=== PATIENT | male | born 2000 | race Two or more races ===

== ENCOUNTER 2019-03-13 15:34 | Emergency (ER) | payer OTHER ==
[~2019-03-13] VITALS: Ht 177.8 cm; Wt 71.0 kg
[2019-03-13] MEDS ORDERED: SODIUM CHLORIDE FLUSH 10ML SYR IVF ONE (16:00)
[2019-03-13] MEDS ORDERED: LIDOCAINE 1%, 10ML INFIL ONE (16:00)
[2019-03-13] MEDS ORDERED: MORPHINE SULFATE 4 MG/ML, 1ML IVPush PRN (16:00)
[2019-03-13] MEDS ORDERED: ONDANSETRON 2MG/ML, 2ML IVPush ONE (16:00)
[2019-03-13] MEDS ORDERED: MORPHINE SULFATE 4 MG/ML, 1ML ONE (16:03)
[2019-03-13] MEDS ORDERED: ONDANSETRON 2MG/ML, 2ML ONE (16:03)
[2019-03-13] MEDS ORDERED: LIDOCAINE-MPF 1%, 5ML ONE (16:03)
[2019-03-13 16:11] LABS: BASOPHILS # (AUTO) 0.06 x10^3/uL (0-0.3); BASOPHILS % (AUTO) 1 % (0-1); EOSINOPHILS # (AUTO) 0.28 x10^3/uL (0-0.8); EOSINOPHILS % (AUTO) 4 % (1-7); LYMPHOCYTES # (AUTO) 1.35 x10^3/uL (1-6.1); LYMPHOCYTES % (AUTO) 19 % (22-44); MD NO; MEAN CORPUSCULAR HEMOGLOBIN 31.9 pg (27.5-34.5); MEAN CORPUSCULAR VOLUME 93.8 fL (81-97); MEAN PLATELET VOLUME 7.8 fL (7.4-10.4); MONOCYTES # (AUTO) 0.58 x10^3/uL (0-1.4); MONOCYTES % (AUTO) 8 % (2-9); NEUTROPHILS # (AUTO) 4.83 x10^3/uL (1.8-8.0); NEUTROPHILS % (AUTO) 68 % (42-75); PLATELET COUNT 266 x10^3/uL (130-400); RED BLOOD COUNT 5.55 x10^6/uL (4.38-5.82)
[2019-03-13 16:18] LABS: ALANINE AMINOTRANSFERASE 22 U/L (12-78); ALBUMIN 4.2 g/dL (3.4-5.0); ANION GAP 7 mmol/L (5-15); CALCIUM 8.9 mg/dL (8.5-10.1); CHLORIDE 108 mmol/L (98-107)
[2019-03-13 16:20] LABS: ALKALINE PHOSPHATASE 67 U/L (45-117); BILIRUBIN,TOTAL 1.3 mg/dL (0.2-1.0); TOTAL PROTEIN 7.3 g/dL (6.4-8.2)
[2019-03-13] MEDS ORDERED: BUPIVACAINE 0.25% ONE (16:59)
[2019-03-13] MEDS ORDERED: NEOSPORIN OINT. PKT 1 PACKET ONE (17:37)
[2019-03-13] MEDS ORDERED: GADOTERATE 7.5 MMOL/15 ML SYR ONE (17:47)
[2019-03-13 19:23] VITALS: BP 129/82
== END 2019-03-13 19:27 | disposition home or self-care (01) ==
LOC: ED 19:15
DX: S01.511A Laceration without foreign body of lip, initial encounter (principal); R55 Syncope and collapse; W18.30XA Fall on same level, unspecified, initial encounter; Y93.89 Activity, other specified; Y92.89 Other specified places as the place of occurrence of the external cause; Y99.8 Other external cause status
CPT/HCPCS: 12051; 36415; 70450; 70486; 70553; 80053; 85025; 93005; 96374; 96375; 99285; A9575; J2270; J2405; J3490

== ENCOUNTER 2020-12-27 20:48 | Emergency (ER) | payer OTHER ==
[~2020-12-27] VITALS: Ht 177.8 cm; Wt 75.0 kg
--- NOTE | 2020-12-27 20:49 | NUR ---
INITIAL PT CONTACT. PT PRESENTS TO ED C/O BILAT SHOULDER DISLOCATIONS, "I WAS LOWERING MYSELF ONTO MY BED AND THEY BOTH POPPED OUT." CSM INTACT DISTAL TO INJURIES. UPON POSITIONING PT IN ROOM, RIGHT ARM RELOCATED PER PT. NO PRIOR HX OF DISLOCATIONS. PT PLACED ON CONTINUOUS MONITORING. CALL LIGHT AND PERSONAL BELONGINGS WITHIN REACH. CALL LIGHT IN REACH, FRIEND AT BEDSIDE.
--- NOTE | 2020-12-27 21:16 | NUR ---
PT RETURNED FROM XRAY
--- NOTE | 2020-12-27 21:17 | NUR ---
XRAY UNABLE TO PERFORM EXAM DUE TO PT PAIN. ERP AWARE. 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
[2020-12-27] MEDS ORDERED: ONDANSETRON 2MG/ML, 2ML ONE (21:22)
[2020-12-27] MEDS ORDERED: MORPHINE SULFATE 4 MG/ML, 1ML ONE ×2 (21:23→21:41)
[2020-12-27] MEDS: MORPHINE SULFATE 4 MG/ML, 1ML IVPush PRN ×2 (21:24→21:42)
[2020-12-27] MEDS ORDERED: ONDANSETRON 2MG/ML, 2ML IVPush ONE (21:30)
[2020-12-27] MEDS ORDERED: KETOROLAC 15 MG/1ML IVPush ONE (23:00)
[2020-12-27] MEDS ORDERED: KETOROLAC 30 MG/1 ML ONE (23:06)
--- NOTE | 2020-12-27 23:15 | NUR ---
PT TO CT
[2020-12-28 00:26] VITALS: BP 106/78
--- NOTE | 2020-12-28 00:26 | NUR ---
Patient given discharge instructions and they have confirmed that they understand the instructions. Patient ambulatory with steady gait. NAD, all questions answered appropriately, denies additional needs at this time. No personal belongings left in room after discharge.
== END 2020-12-28 00:32 | disposition home or self-care (01) ==
LOC: ED 22:40
DX: S43.004A Unspecified dislocation of right shoulder joint, initial encounter (principal); X58.XXXA Exposure to other specified factors, initial encounter; Y93.89 Activity, other specified; Y92.89 Other specified places as the place of occurrence of the external cause; Y99.8 Other external cause status
CPT/HCPCS: 73030; 96374; 96375; 99284; J1885; J2270; J2405